=== PATIENT | male | born 1955 | race Caucasian/White ===

== ENCOUNTER → 2020-04-25 | Outpatient (CLI) | payer OTHER | LOC: RAD 11:07 | DX: M47.816 Spondylosis without myelopathy or radiculopathy, lumbar region (principal); M25.78 Osteophyte, vertebrae; M43.22 Fusion of spine, cervical region; M48.07 Spinal stenosis, lumbosacral region; Z96.641 Presence of right artificial hip joint; Z96.642 Presence of left artificial hip joint ==